=== PATIENT | male | born 1975 | race Caucasian/White ===

== ENCOUNTER 2022-01-19 22:13 | Emergency (ER) | payer SELFPAY ==
[~2022-01-19] VITALS: Ht 170.2 cm; Wt 99.0 kg
[2022-01-19] MEDS ORDERED: KETOROLAC 30MG/ML VIAL IM STA (23:26)
[2022-01-20] MEDS ORDERED: KETOROLAC 30MG/ML VIAL IM NR (00:45)
[2022-01-20] MEDS ORDERED: IBUP-2029 MT (01:18)
[2022-01-20 01:53] VITALS: BP 137/71
== END 2022-01-20 01:56 | disposition home or self-care (01) ==
LOC: ER 22:13
DX: S06.9X9A Unspecified intracranial injury with loss of consciousness of unspecified duration, initial encounter (principal); S40.012A Contusion of left shoulder, initial encounter; W18.2XXA Fall in (into) shower or empty bathtub, initial encounter; Y93.E1 Activity, personal bathing and showering; Y92.012 Bathroom of single-family (private) house as the place of occurrence of the external cause
CPT/HCPCS: 70450; 73030; 96372; 99284; J1885